=== PATIENT | female | born 1950 | race Caucasian/White ===

== ENCOUNTER 2023-11-21 18:03 | Emergency (ER) | payer MEDICARE, SELFPAY ==
[2023-11-21 18:12] VITALS: BP 172/90; PULSE 81; TEMP 36.7; O2SAT 94; BMI 33.1
--- NOTE | 2023-11-21 18:23 | XR_ITS ---
The [address] [address] Patient Name: DAMIAN TEMPLE MRN: [id number] date: 1950 Sex: F Assigned Patient Location: ED.MAIN Current Patient Location: ER Accession/Order Number: [id number] Exam Date: 11/21/2023 18:35 Report Date: 11/21/2023 19:16 At the request of: NON-STAFF PHYSICIAN Procedure: XR ribs RT min 3V w CXR1V Exam: Radiographs: XR ribs RT min 3V w CXR1V Reason for exam: injury Comparison: None XR/XR ribs RT min 3V w CXR1V IMPRESSION: Age indeterminate fractures of the right fourth, fifth, sixth and seventh ribs laterally, correlate clinically. Pulmonary venous hypertension. Cardiomegaly. Remainder of the chest and right rib radiographs is unremarkable. Electronically authenticated by: LUCIO EAGLE Date: 11/21/2023 19:16
--- NOTE | 2023-11-21 18:23 | XR_ITS ---
The [address] [address] Patient Name: DAMIAN TEMPLE MRN: [id number] date: 1950 Sex: F Assigned Patient Location: ED.MAIN Current Patient Location: ER Accession/Order Number: [id number] Exam Date: 11/21/2023 18:35 Report Date: 11/21/2023 19:16 At the request of: NON-STAFF PHYSICIAN Procedure: XR shoulder RT min 2V EXAM: XR shoulder RT min 2V HISTORY: injury COMPARISON: Chest and right rib x-ray 11/21/2023. TECHNIQUE: AP internal rotation, external rotation, Y-view right shoulder. FINDINGS: No fracture or dislocation. No soft tissue calcification. Normal-appearing before meals and glenohumeral joints. Normal mineralization. No displaced right rib fracture on the images provided, visualized right lung clear. XR/XR shoulder RT min 2V IMPRESSION: Negative for fracture or dislocation. See separate dictation for right RIBS. Electronically authenticated by: TANYA DUGAN Date: 11/21/2023 19:16
--- NOTE | 2023-11-21 18:37 | ED.FALL1 ---
Documented by User: JOYA Jim 11/21/23 21:51 HPI HPI - Fall General Chief Complaint: Fall Stated Complaint: Rib Pain/Injury from Fall Time Seen by Provider: 11/21/23 18:27 Source: patient and family Mode of arrival: walk-in Limitations: no limitations History of Present Illness HPI Narrative: 73-year-old female presents to the emergency department with her with complaint of injury to her right ribs. Patient states she tripped and fell, had her arm tucked inside of her, landing on it. Patient denies any appreciable pain to her arm. Does have a little numbness and tingling. However, the pain is mainly located to the anterior, lower ribs. Pain worsens when she takes a deep breath or pushes on the area. Does feel little short of breath due to the pain. Denies any other injury. Denies hitting her head, lower extremity injury or pain, abdominal pain or tenderness. Denies any back pain, neck pain. Quality:?blunt trauma Severity:?moderate Timing:?injury occurred this morning, constant Context: Normal setting and activity? Modifying factors:?as above Associated symptoms: As above Related Data Previous Rx's ?Medication ?Instructions ?Recorded hydrocodone 5 mg-acetaminophen 325 1 tab PO Q8H PRN pain #8 tabs 11/21/23 mg tablet ibuprofen 600 mg tablet 600 mg PO Q8H PRN pain #20 tabs 11/21/23 lidocaine 5 % topical patch 1 patch topical DAILY PRN rib pain 11/21/23 (Lidoderm) #15 ea Allergies Allergy/AdvReac Type Severity Reaction Status Date / Time No Known Drug Allergies Allergy Verified 11/21/23 18:12 Opioid HPI Opioid Management Most Recent Pain and Opioid Data: Last Pain Scale 10 11/21/23 18:54 Last OCT Pain Assessment 11/21/23 18:54 Review of Systems ROS Narrative CONST: Denies activity change, diaphoresis HENT: Denies facial injury EYES: Denies visual changes, eye pain RESP: Denies shortness of breath, chest tightness GI: Denies abd pain : Denies flank pain MS: Denies back pain, neck pain SKIN: Denies any wounds, swelling NEURO:? Denies headache, dizziness, numbness, paresthesias HEMATOLOGIC: Denies anticoagulant use PSYCHIATRIC: Denies confusion Exam Narrative Exam Narrative: Vital signs reviewed Nurses notes noted CONST: Nontoxic, well appearing, well nourished, in no distress.? No diaphoresis.?? HENT: normocephalic, atraumatic.? There is no tenderness, edema, crepitus, instability, step off of the scalp, face. Moist mucous membrane, no abnormalities of the nose noted, normal appearing ext ears.? No drainage, blood from ears.? Hearing normal.? No dental injury. EYES: PERRL, EOMI.? Normal appearing conjunctiva, no apparent discharge bilat.? No orbital or periorbital swelling or tenderness. NECK: normal appearance, no tenderness, swelling CV: normal rate, regular rhythm, no murmur RESP: normal effort, speaking in complete sentences, Lung sounds clear and equal bilat.? No wheezes, rales, rhonchi.? No chest tenderness CHEST:? + tenderness diffusely over the right anterior, inferior ribs.? No edema, crepitus, instability GI: soft, nontender, no distension : no CVA tenderness, discoloration MS: infant babysitter, push, pull strong and equal bilat.? No extremity tenderness, swelling.? No tenderness of the spinous process, paraspinal musculature of the C, T, L-S spines SKIN: intact.? Warm, dry.? No abrasions, lacerations, pallor NEURO: A&Ox 3, GCS = 15, no sensory, motor deficits.? CN normal as tested.? No abnormalities noted with coordination. Gait intact PSYCH: normal mood, affect.? Normal speech.? Memory intact. Constitutional Vital Signs, click to edit/add: Last Vital Signs Temp 98.1 F 11/21/23 18:12 Pulse 81 11/21/23 18:12 Resp 20 11/21/23 18:12 BP 172/90 H 11/21/23 18:12 Pulse Ox 94 L 11/21/23 18:12 O2 Del Method Room Air 11/21/23 18:12 Course Reevaluation(s) Reevaluation #1: On reevaluation, patient states the pain is tolerable. Discussed with patient results, plan, and disposition. They are agreeable with plan Time: 19:27 Vital Signs Vital signs: Vital Signs Temperature 98.1 F 11/21/23 18:12 Pulse Rate 81 11/21/23 18:12 Respiratory Rate 20 11/21/23 18:12 Blood Pressure 172/90 H 11/21/23 18:12 Pulse Oximetry 94 L 11/21/23 18:12 Oxygen Delivery Method Room Air 11/21/23 18:12 Temperature 98.1 F 11/21/23 18:12 Pulse Rate 81 11/21/23 18:12 Respiratory Rate 20 11/21/23 18:12 Blood Pressure 172/90 H 11/21/23 18:12 Pulse Oximetry 94 L 11/21/23 18:12 Oxygen Delivery Method Room Air 11/21/23 18:12 MDM - Fall MDM Narrative Medical decision making narrative: This is a pleasant 73-year-old female who presents to the emergency department with with complaint of right inferior rib injury. States she tripped and fell earlier today, landing with arm tucked into chest. States no appreciable symptoms with her arm, but chest has been uncomfortable, tender and worsens when she takes a deep breath. Patient complains of acute, markedly increase in pain when she sneezed earlier. On arrival, afebrile, vital signs stable, not hypoxic. On exam, nontoxic, well-appearing somewhat uncomfortable appearing patient in no distress. She is holding her right inferior ribs. Heart regular rate and rhythm. Lung sounds clear and equal bilaterally. She has tenderness diffusely to the right anterior, inferior ribs underneath her breast. No swelling, ecchymosis, discoloration, crepitus, deformity, instability, warmth. No tenderness on examination of the right upper extremity. Range of motion full. Neurovascularly intact. X-ray imaging, per radiologist reveals remote fractures of the third, fourth, fifth, and sixth ribs. No fracture noted to where patient is clinically tender. On review of patient's x-rays, she states she has had rib fractures in the past. Patient was treated with Tylenol and Motrin during ED course with improvement. Favor rib injury, contusion based on history and physical Rib fracture less likely based on imaging Pneumothorax less likely based on imaging CT imaging was considered, but patient had normal vital signs. No gross abnormalities were noted on x-ray Disposition ? The patient was discharged. Plan: Patient will be discharged to home. Condition at time of disposition: stable She was discharged with incentive spirometer, limited supply of [place] and Lidoderm patch. Advised to follow up with primary provider. Advised to return for any worsening and/or development of new, concerning signs or symptoms PLEASE NOTE: Portions of the medical record may have been produced using electronic assistant gm of content & delivery and may contain errors with respect to translation of words which may not have been identified prior to finalization of the chart. Discharge Plan Discharge Stand Alone Forms: Portal Instructions Chief Complaint: Fall Clinical Impression: Rib injury Contusion of rib on right side Qualifiers: Encounter type: initial encounter Qualified Code(s): S20.211A - Contusion of right front wall of thorax, initial encounter Contusion of arm, right Qualifiers: Encounter type: initial encounter Qualified Code(s): S40.021A - Contusion of right upper arm, initial encounter Patient Disposition: Home, Self-Care Time of Disposition Decision: 19:28 Condition: Good Mode of Transportation: Private Vehicle Prescriptions / Home Meds: New hydrocodone-acetaminophen 5-325 mg tablet 1 tab PO Q8H PRN (Reason: pain) Qty: 8 0RF ibuprofen 600 mg tablet 600 mg PO Q8H PRN (Reason: pain) Qty: 20 0RF lidocaine [Lidoderm] 5 % adhesive patch,medicated 1 patch topical DAILY PRN (Reason: rib pain) Qty: 15 0RF Rx Instructions: leave on most painful area for up to 12 hrs Print Language: Maltese Instructions: Rib Contusion (ED) Referrals: Joey Biggs MD [Physician] - 1 week Discharge Date/Time: 11/21/23 19:54 Documented by User: Arnol Dawson MD 11/21/23 21:55 HPI HPI - Fall General Chief Complaint: Fall Stated Complaint: Rib Pain/Injury from Fall Time Seen by Provider: 11/21/23 18:27 Related Data Previous Rx's ?Medication ?Instructions ?Recorded hydrocodone 5 mg-acetaminophen 325 1 tab PO Q8H PRN pain #8 tabs 11/21/23 mg tablet ibuprofen 600 mg tablet 600 mg PO Q8H PRN pain #20 tabs 11/21/23 lidocaine 5 % topical patch 1 patch topical DAILY PRN rib pain 11/21/23 (Lidoderm) #15 ea Allergies Allergy/AdvReac Type Severity Reaction Status Date / Time No Known Drug Allergies Allergy Verified 11/21/23 18:12 Opioid HPI Opioid Management Most Recent Pain and Opioid Data: Last Pain Scale 10 11/21/23 18:54 Last MAR Pain Assessment 11/21/23 18:54 Exam Constitutional Vital Signs, click to edit/add: Last Vital Signs Temp 98.1 F 11/21/23 18:12 Pulse 81 11/21/23 18:12 Resp 20 11/21/23 18:12 BP 172/90 H 11/21/23 18:12 Pulse Ox 94 L 11/21/23 18:12 O2 Del Method Room Air 11/21/23 18:12 Course Vital Signs Vital signs: Vital Signs Temperature 98.1 F 11/21/23 18:12 Pulse Rate 81 11/21/23 18:12 Respiratory Rate 20 11/21/23 18:12 Blood Pressure 172/90 H 11/21/23 18:12 Pulse Oximetry 94 L 11/21/23 18:12 Oxygen Delivery Method Room Air 11/21/23 18:12 Temperature 98.1 F 11/21/23 18:12 Pulse Rate 81 11/21/23 18:12 Respiratory Rate 20 11/21/23 18:12 Blood Pressure 172/90 H 11/21/23 18:12 Pulse Oximetry 94 L 11/21/23 18:12 Oxygen Delivery Method Room Air 11/21/23 18:12 MDM - Fall MDM Narrative Medical decision making narrative: This is a pleasant 73-year-old female who presents to the emergency department with with complaint of right inferior rib injury. States she tripped and fell earlier today, landing with arm tucked into chest. States no appreciable symptoms with her arm, but chest has been uncomfortable, tender and worsens when she takes a deep breath. Patient complains of acute, markedly increase in pain when she sneezed earlier. On arrival, afebrile, vital signs stable, not hypoxic. On exam, nontoxic, well-appearing somewhat uncomfortable appearing patient in no distress. She is holding her right inferior ribs. Heart regular rate and rhythm. Lung sounds clear and equal bilaterally. She has tenderness diffusely to the right anterior, inferior ribs underneath her breast. No swelling, ecchymosis, discoloration, crepitus, deformity, instability, warmth. No tenderness on examination of the right upper extremity. Range of motion full. Neurovascularly intact. X-ray imaging, per radiologist reveals remote fractures of the third, fourth, fifth, and sixth ribs. No fracture noted to where patient is clinically tender. On review of patient's x-rays, she states she has had rib fractures in the past. Patient was treated with Tylenol and Motrin during ED course with improvement. Favor rib injury, contusion based on history and physical Rib fracture less likely based on imaging Pneumothorax less likely based on imaging CT imaging was considered, but patient had normal vital signs. No gross abnormalities were noted on x-ray Disposition ? The patient was discharged. Plan: Patient will be discharged to home. Condition at time of disposition: stable She was discharged with incentive spirometer, limited supply of [place] and Lidoderm patch. Advised to follow up with primary provider. Advised to return for any worsening and/or development of new, concerning signs or symptoms PLEASE NOTE: Portions of the medical record may have been produced using electronic assistant gm of content & delivery and may contain errors with respect to translation of words which may not have been identified prior to finalization of the chart. I, Dr Dawson, have reviewed the above progress note and course of action in the ER; agree with the above. I have gone over history and physical, and discussed disposition and treatment plan with the patient. Discharge Plan Discharge Stand Alone Forms: Portal Instructions Chief Complaint: Fall Clinical Impression: Rib injury Contusion of rib on right side Qualifiers: Encounter type: initial encounter Qualified Code(s): S20.211A - Contusion of right front wall of thorax, initial encounter Contusion of arm, right Qualifiers: Encounter type: initial encounter Qualified Code(s): S40.021A - Contusion of right upper arm, initial encounter Patient Disposition: Home, Self-Care Time of Disposition Decision: 19:28 Condition: Good Mode of Transportation: Private Vehicle Prescriptions / Home Meds: New hydrocodone-acetaminophen 5-325 mg tablet 1 tab PO Q8H PRN (Reason: pain) Qty: 8 0RF ibuprofen 600 mg tablet 600 mg PO Q8H PRN (Reason: pain) Qty: 20 0RF lidocaine [Lidoderm] 5 % adhesive patch,medicated 1 patch topical DAILY PRN (Reason: rib pain) Qty: 15 0RF Rx Instructions: leave on most painful area for up to 12 hrs Print Language: Maltese Instructions: Rib Contusion (ED) Referrals: Joey Biggs MD [Physician] - 1 week Discharge Date/Time: 11/21/23 19:54
[2023-11-21] MEDS: IBUPROFEN 600 MG TABLET PO (18:53)
[2023-11-21] MEDS: ACETAMINOPHEN 325 MG TABLET 650 MG PO (18:54)
== END 2023-11-21 19:54 | disposition home or self-care (01) ==
PROVIDERS: Emergency Provider Emergency Medicine
DX: S20.211A Contusion of right front wall of thorax, initial encounter (principal); S40.021A Contusion of right upper arm, initial encounter; W01.10XA Fall on same level from slipping, tripping and stumbling with subsequent striking against unspecified object, initial encounter
CPT/HCPCS: 71101; 73030; 94667; 99283

== ENCOUNTER 2023-11-23 12:12 | Emergency (ER) | payer MEDICARE, SELFPAY ==
[2023-11-23 12:17] VITALS: BP 153/96; PULSE 78; TEMP 36.7; O2SAT 96; BMI 33.1
--- NOTE | 2023-11-23 12:33 | XR_ITS ---
The [address] [address] Patient Name: DAMIAN TEMPLE MRN: [id number] date: 1950 Sex: F Assigned Patient Location: ER Current Patient Location: ER Accession/Order Number: [id number] Exam Date: 11/23/2023 12:42 Report Date: 11/23/2023 13:29 At the request of: CONI SWAN Procedure: XR ribs RT min 3V w CXR1V EXAMINATION: XR ribs RT min 3V w CXR1V 11/23/2023 10:25 AM PDT HISTORY: Increasing pain from 2 days ago COMPARISONS: Chest rib x-rays 11/21/2023. FINDINGS: Lines and tubes: None. Heart and mediastinum: The heart and the mediastinum are normal for technique. Lungs and pleura: The lungs are clear. There is no evidence of pneumonia or pulmonary edema. There is no pleural effusion or pneumothorax. Bones: No acute osseous abnormality. RIGHT RIBS: -Acute displaced fracture of the lateral right sixth rib. -Healed fractures of the right posterolateral fourth through sixth ribs. XR/XR ribs RT min 3V w CXR1V IMPRESSION: 1. No acute cardiopulmonary disease. 2. Mildly displaced acute fracture of the anterolateral right sixth rib. 3. Additional remote healed fractures of the fourth through sixth ribs. Electronically authenticated by: GERALD GARRIDO Date: 11/23/2023 13:29
--- NOTE | 2023-11-23 12:54 | ED.FALL1 ---
HPI HPI - Fall General Chief Complaint: Fall Stated Complaint: RIB PAIN, PREVIOUS FALL Time Seen by Provider: 11/23/23 12:24 Source: patient Mode of arrival: walk-in History of Present Illness HPI Narrative: 73-year-old female presents to the emergency department for increasing rib pain. She had fallen 2 days ago and was seen here and had rib x-rays which showed rib fractures of indeterminate age. She feels like her pain has gotten worse despite using the pain medicine and patch. No new injury. No abdominal pain or vomiting. The pain is moderate and sharp. Related Data Previous Rx's ?Medication ?Instructions ?Recorded hydrocodone 5 mg-acetaminophen 325 1 tab PO Q8H PRN pain #8 tabs 11/21/23 mg tablet ibuprofen 600 mg tablet 600 mg PO Q8H PRN pain #20 tabs 11/21/23 lidocaine 5 % topical patch 1 patch topical DAILY PRN rib pain 11/21/23 (Lidoderm) #15 ea Allergies Allergy/AdvReac Type Severity Reaction Status Date / Time No Known Drug Allergies Allergy Verified 11/21/23 18:12 Opioid HPI Opioid Management Most Recent Pain and Opioid Data: Last Pain Scale 10 11/21/23 18:54 Last MAR Pain Assessment 11/21/23 18:54 Review of Systems ROS Narrative A ten point review of systems is negative except as noted above. Exam Narrative Exam Narrative: Nurses note and vital signs reviewed and patient is not hypoxic. General: The patient appears well and in no apparent distress. Patient is resting comfortably on cart. Skin: Warm, dry, no pallor noted. There is no rash noted. Head: Normocephalic, atraumatic Eye: Normal conjunctiva, no drainage Ears, Nose, Mouth, and Throat: oral mucosa is moist. Nares patent. Cardiovascular: Regular Rate and Rhythm Respiratory: Patient is in no distress, breath sounds are equal. She has some tenderness to palpation of the right lower anterior lateral rib region without crepitus. No tenderness in the right upper quadrant. Back: non-tender GI: Soft and nontender including the right upper quadrant. Musculoskeletal: The patient has no evidence of calf tenderness, no pitting edema, symmetrical pulses noted bilaterally Neurological: A&O, normal speech Psychiatric: Cooperative Constitutional Vital Signs, click to edit/add: Last Vital Signs Temp 98.0 F 11/23/23 12:17 Pulse 78 11/23/23 12:17 Resp 18 11/23/23 12:17 BP 153/96 H 11/23/23 12:17 Pulse Ox 96 11/23/23 12:17 O2 Del Method Room Air 11/23/23 12:17 Course Vital Signs Vital signs: Vital Signs Temperature 98.0 F 11/23/23 12:17 Pulse Rate 78 11/23/23 12:17 Respiratory Rate 18 11/23/23 12:17 Blood Pressure 153/96 H 11/23/23 12:17 Pulse Oximetry 96 11/23/23 12:17 Oxygen Delivery Method Room Air 11/23/23 12:17 Temperature 98.0 F 11/23/23 12:17 Pulse Rate 78 11/23/23 12:17 Respiratory Rate 18 11/23/23 12:17 Blood Pressure 153/96 H 11/23/23 12:17 Pulse Oximetry 96 11/23/23 12:17 Oxygen Delivery Method Room Air 11/23/23 12:17 MDM - Fall MDM Narrative Medical decision making narrative: Rib fracture is identified on today's films, acute. She is already on pain medicine and has incentive spirometer. Findings are discussed with the patient and her family. Differential Diagnosis Differential diagnosis: Likely other (Rib fracture, pneumothorax) Imaging Data Rib x-rays: Radiologist's impression: ITS Impressions Ribs X-Ray 11/23/23 12:33 IMPRESSION: 1. No acute cardiopulmonary disease. 2. Mildly displaced acute fracture of the anterolateral right sixth rib. 3. Additional remote healed fractures of the fourth through sixth ribs. Electronically authenticated by: GERALD GARRIDO Date: 11/23/2023 13:29 Discharge Plan Discharge Stand Alone Forms: Portal Instructions Chief Complaint: Fall Clinical Impression: Fracture of rib Patient Disposition: Home, Self-Care Time of Disposition Decision: 13:45 Condition: Good Mode of Transportation: Private Vehicle Prescriptions / Home Meds: No Action hydrocodone-acetaminophen 5-325 mg tablet 1 tab PO Q8H PRN (Reason: pain) Qty: 8 0RF ibuprofen 600 mg tablet 600 mg PO Q8H PRN (Reason: pain) Qty: 20 0RF lidocaine [Lidoderm] 5 % adhesive patch,medicated 1 patch topical DAILY PRN (Reason: rib pain) Qty: 15 0RF Rx Instructions: leave on most painful area for up to 12 hrs Print Language: Portuguese Instructions: Rib Fracture (ED) Referrals: Physician,Non-Staff, MD [Primary Care Provider] - 1 week
== END 2023-11-23 13:58 | disposition home or self-care (01) ==
PROVIDERS: Emergency Provider Emergency Medicine
DX: S22.31XA Fracture of one rib, right side, initial encounter for closed fracture (principal); W19.XXXA Unspecified fall, initial encounter
CPT/HCPCS: 71101; 99285